=== PATIENT | male | born 1980 | race Caucasian/White ===

== ENCOUNTER 2021-08-02 11:05 | Emergency (ER) | payer OTHER, SELFPAY ==
[2021-08-02 11:30] VITALS: BP 178/130; PULSE 108; RESP 18; TEMP 39.1; O2SAT 99
--- NOTE | 2021-08-02 11:56 | ED.URI ---
HPI - URI/Sore Throat General Chief Complaint: Upper Respiratory Infection Stated Complaint: fever congestion cough body aches Time Seen by Provider: 08/02/21 11:56 Source: patient, family, RN notes reviewed and old records reviewed Mode of arrival: ambulatory Limitations: no limitations History of Present Illness HPI Narrative: 40 year old male presents to [facility] care accompanied by with 3 day history of acute cough, fevers, chills and sweats. body aches Patient states that one by one his whole family has had COVID. Patient states that cough is bad denies any wheezing or ay acute dyspnea but constant cough noted. He reports that he has been taking Ibuprofen and Mucinex DM for his symptoms. He has extremely elevated blood pressure states that he has een without his blood pressure medication for several month because he had lost his job and had no insurance and then got some insurance and doctor would not accept. Patient states that he recently started a new job and has insurance but has not found a new doctor. MD elicited complaint: fever, cough, nasal congestion and other (Body aches) Related Data Allergies Allergy/AdvReac Type Severity Reaction Status Date / Time Penicillins Allergy Hives Verified 08/02/21 11:41 Review of Systems Review of Systems: CONSTITUTIONAL:Positive for fever, chills, or sweats. EYES: Denies visual changes, redness, or discharge. ENT: Positive for rhinorrhea, congestion,no sore throat, or otalgia. CARDIOVASCULAR: Denies chest pain, palpitations, or edema. RESPIRATORY: Positive for harsh cough denies dyspnea. GASTROINTESTINAL: Denies abdominal pain, nausea, vomiting, or diarrhea. GENITOURINARY: Denies dysuria or hematuria. SKIN: Denies rash or itching. MUSCULOSKELETAL: Denies back pain, joint pain,positive for body aches NEUROLOGIC: Denies headache, numbness, or weakness, states fatigue PSYCHIATRIC: Denies anxiety or depression. All systems reviewed & are unremarkable except as noted in HPI and below PMFSH Past Medical History Medical History (Updated 08/07/21 @ 09:29 by Marina Mariano NP) Anxiety Hypertension Surgical History Surgical History (Updated 08/07/21 @ 09:23 by Marina Mariano NP) No pertinent past surgical history Family History Family History (Updated 08/07/21 @ 09:24 by Marina Mariano NP) Father Hypertension Cerebrovascular accident Heart disease Grandparent Hypertension Heart disease Social History Social History (Updated 08/07/21 @ 09:25 by Marina Mariano NP) Smoking packs per day: 0.5 Smoking cigarettes per day: 10.0 Years smoked: 25 Smoking pack-years: 12.50 Smoking status: Current every day smoker Alcohol intake: current Alcohol use details: social Substance use: never Living arrangements: with family Gender identity (if verbalized by the patient): Male Comments At time of signature, agree with nursing past medical, surgical, social and family history. There is no relevant family history pertinent to the presenting complaint Exam Narrative: GENERAL: Ill-appearing, well-nourished, and in no acute distress. HEAD: Normocephalic, atraumatic. EYES: PERRLA and EOMI. ENT: Nares red clear rhinorrhea no epistaxis. Mucous membranes moist.TM's normal with good light reflex, Throat red no exudates or lesion or tonsil swelling post nasal drainage noted NECK: Supple.no lymphadenopathy CHEST: Clear slight decreased to auscultation. No respiratory distress.SAO2 99% on room air acute cough noted HEART: Regular rate and rhythm. No murmur heard. Normal peripheral pulses. ABDOMEN: Soft, nontender, nondistended, normal active bowel sounds. EXTREMITIES: Normal range of motion. No edema.generalized body aches SKIN: Warm, dry, no rash. NEURO: No focal deficits. Alert and oriented x3. Course Vital Signs Vital signs: Vital Signs Temperature 39.1 C H 08/02/21 11:30 Pulse Rate 108 H 08/02/21 11:30 Respiratory Rate 18 08/02/21 11
[2021-08-02 12:06] VITALS: TEMP 39.1
[2021-08-02] MEDS: IBUPROFEN 600 MG TABLET PO (12:06)
== END 2021-08-02 13:06 | disposition home or self-care (01) ==
PROVIDERS: Emergency Provider Registered Nurse
DX: U07.1 COVID-19 (principal)
CPT/HCPCS: 87426; 99213; A9270; C9803; G0463